=== PATIENT | female | born 1955 | race Caucasian/White ===

== ENCOUNTER → 2020-07-10 14:04 | Outpatient (CLI) | payer MEDICARE, OTHER, SELFPAY ==
--- NOTE | ~2020-07-10 | XR_ITS ---
XR foot LT min 3V DATE: 07/10/2020 14:26 INDICATION: Left foot pain. Stress fracture. TECHNIQUE: 4 views COMPARISON: None FINDINGS: Moderate osteopenia is suggested. No fracture or dislocation, periosteal reaction or bone destruction is detected. No erosive change. IMPRESSION: Moderate osteopenia No evidence of fracture Reviewed, dictated and finalized at location B. [employer] CLERK
== END ==
DX: M84.375A Stress fracture, left foot, initial encounter for fracture (principal); M85.88 Other specified disorders of bone density and structure, other site
CPT/HCPCS: 73630

== ENCOUNTER 2024-08-16 13:52 | Outpatient (CLI) | payer MEDICARE, SELFPAY ==
--- NOTE | ~2024-08-16 | CT_ITS ---
Non-contrast CT scan of the Abdomen and Pelvis Clinical indication: Abdominal pain Technique: 2.5 mm axial scans were obtained through the abdomen and pelvis without intravenous or or al contrast. Dose reduction technique was used on this scan by utilizing automated exposure control a nd iterative reconstruction technique. The dose-length product (DLP) was 362.84 mGy-cm. Findings: Images through the lung bases reveal no abnormalities. There is no evidence of renal or ureteral calculi. The kidneys and the ureters are nondilated. The liver, spleen, pancreas, and adrenals appear normal. Multiple calcified gallstones are present. T here is no aortic aneurysm. There is no evidence of bowel obstruction. Postoperative changes and large bowel are present with mod erate to large amount of stool. Images through the pelvis were performed. There is no evidence of ascites or lymphadenopathy. Urinary bladder unremarkable. No pelvic mass seen. Impression: Cholelithiasis. Constipation. Reviewed, dictated and finalized at [facility]. Y [employer] Impression: Cholelithiasis. Constipation.
== END 2024-08-16 13:53 | disposition home or self-care (01) ==
DX: K80.20 Calculus of gallbladder without cholecystitis without obstruction (principal); K59.00 Constipation, unspecified
CPT/HCPCS: 74176